=== PATIENT | female | born 1960 | race American Indian/Alaskan Native ===

== ENCOUNTER 2021-07-20 07:23 | Emergency (ER) | payer SELFPAY | END 2021-07-20 09:32 | disposition home or self-care (01) | LOC: JP.ED 07:23 | DX: R07.89 Other chest pain (principal); N61.0 Mastitis without abscess; H60.12 Cellulitis of left external ear; R07.2 Precordial pain; I25.2 Old myocardial infarction; E11.9 Type 2 diabetes mellitus without complications; D72.829 Elevated white blood cell count, unspecified; Z72.0 Tobacco use; Z88.8 Allergy status to other drugs, medicaments and biological substances; Z88.0 Allergy status to penicillin; Z79.84 Long term (current) use of oral hypoglycemic drugs; Z79.899 Other long term (current) drug therapy | CPT/HCPCS: 36415; 71046; 80053; 83690; 84484; 85025; 93005; 99283; 99285-25 ==